=== PATIENT | female | born 1995 | race Hispanic/Latino ===

== ENCOUNTER 2017-02-26 10:52 | Emergency (ER) | payer OTHER, SELFPAY ==
[~2017-02-26 10:52] MED LIST: Sodium Chloride 0.9% 1,000 ML BAG ONE
[2017-02-26 11:03] LABS: #Basophils 0.1 thou/uL (0.0-0.2); #Eosinphils 0.2 thou/uL (0.0-0.7); #Lymphocytes 4.4 thou/uL (1.20-3.40); #Monocytes 0.7 thou/uL (0.11-0.59); #Neutrophils 8.1 thou/uL (1.40-6.50); %Basophils 0.6 % (0.0-1.0); %Eosinophils 1.4 % (0.0-10.0); %Lymphocytes 32.5 % (21.0-51.0); %Monocytes 5.2 % (0.0-10.0); %Neutrophils 60.3 % (42.0-75.0); Hemoglobin 12.5 g/dL (12.0-16.0); Mean Corpuscular HGB CONC 34.3 g/dL (32.0-36.0); Mean Corpuscular Hemoglobin 30.7 pg (27.0-31.0); Mean Corpuscular Volume 89.6 fl (81.0-99.0); Mean Platelet Volume 6.5 fL (7.4-10.4); Platelet Count 329 thou/uL (130-400); RBC Distribution Width 13.2 % (11.5-14.5); Red Blood Cell (RBC) Count 4.07 mill/uL (4.20-5.40); White Blood Cell (WBC) Count 13.4 thou/uL (4.8-10.8)
[2017-02-26 11:08] LABS: INR-International Normal Ratio 1.1; PTT 32.2 SEC (22.9-36.1); Prothrombin Time 13.8 SEC (12.0-14.7)
[2017-02-26] MEDS ORDERED: Morphine 4 MG/ML VIAL ONE (11:09)
[2017-02-26] MEDS ORDERED: CEFAZOLIN 1 GM VIAL ONE (11:13)
[2017-02-26 11:18] LABS: ALT (SGPT) 24 U/L (8-55); AST (SGOT) 19 U/L (5-34); Albumin 4.2 g/dL (3.5-5.0); Alkaline Phosphatase 61 U/L (40-150); Anion Gap 16 mmol/L (10-20); BUN (Urea Nitrogen) 8 mg/dL (7.0-18.7); Bilirubin, Total 0.8 mg/dL (0.2-1.2); Calc. Creatinine Clearance 0 mL/min (70-130); Carbon Dioxide 22 mmol/L (22-29); Chloride 105 mmol/L (98-107); Estimated GFR-MDRD Greater than 90; Globulin 3.3 g/dL (2.4-3.5); Glucose 147 mg/dL (70-105); Potassium 3.1 mmol/L (3.5-5.1); Protein, Total 7.5 g/dL (6.0-8.3); Sodium 140 mmol/L (136-145)
[2017-02-26] MEDS ORDERED: Adacel (T-DAP) 0.5 ML VIAL ONE (11:20)
[2017-02-26] MEDS ORDERED: Fentanyl 100 MCG/2 ML VIAL ONE (11:27)
[2017-02-26] MEDS ORDERED: Ondansetron HCl/PF 4 MG/2 ML Vial ONE (11:28)
--- NOTE | 2017-02-26 12:33 | RAD ---
RIGHT FOREARM 2 VIEWS: Date; 11/26/16 PROVIDED CLINICAL HISTORY: Right forearm pain status post injury. FINDINGS: There are marked comminuted and displaced fractures of the distal radius and ulna. The distal ulnar f ragment is rotated such that it is oriented in a dorsal-volar position. There is extensive soft tissu e gas. Numerous radiodense foci overlie the soft tissues which may reflect foreign bodies. There is f racture involving the fourth metacarpal. IMPRESSION: 1. Markedly comminuted and displaced presumably open distal radial and ulnar fractures. 2. Fourth metacarpal fracture. POS: [facility]
[2017-02-26] MEDS ORDERED: Sodium Chloride Irrig Solution 250 ML BOT ONE (13:46)
== END 2017-02-26 11:36 | disposition short-term general hospital (02) ==
LOC: MADERS 10:52
DX: S52.501B Unspecified fracture of the lower end of right radius, initial encounter for open fracture type I or II (principal); S52.601B Unspecified fracture of lower end of right ulna, initial encounter for open fracture type I or II; S80.01XA Contusion of right knee, initial encounter; V86.69XA Passenger of other special all-terrain or other off-road motor vehicle injured in nontraffic accident, initial encounter
CPT/HCPCS: 25605; 36416; 51702; 80053; 85025; 85610; 85730; 90471; 90715; 96361; 96374; 96375; J0690; J2270; J2405; J3010; J7050